=== PATIENT | male | born 1970 | race Asian ===

== ENCOUNTER 2022-03-21 07:16 | Emergency (ER) | payer OTHER, SELFPAY ==
[2022-03-21 07:23] VITALS: BP 140/99; PULSE 100; RESP 18; TEMP 36.6; O2SAT 100; BMI 24.2
--- NOTE | 2022-03-21 07:23 | XR_ITS ---
WS: [id number] Exam: XR chest 1V portable [id number] Date/Time of Exam: 03/21/2022 7:31 AM Reason For Exam: dyspnea/cough No priors. There is cardiac enlargement. The lungs are clear and fully expanded. No pleural effusions. The media stinal silhouette is unremarkable in appearance. Bony structures are intact. XR/XR chest 1V portable [id number] IMPRESSION: 1. Cardiac enlargement. No acute process.
--- NOTE | 2022-03-21 07:23 | ECG_ITS ---
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 Measurements Intervals [place] Rate: 97 P: 36 UT: 140 QRS: -39 QRSD: 97 T: 116 QT: 375 QTc: 477 Interpretive Statements SINUS RHYTHM LEFT ATRIAL ENLARGEMENT [-0.15mV P-WAVE IN V1/V2] LEFT AXIS DEVIATION [QRS AXIS < -30] INCOMPLETE RIGHT BUNDLE BRANCH BLOCK [90+ ms QRS DURATION, TERMINAL R IN V1/V2, 40+ ms S IN I/aVL/V4/V5/V6] ANTEROSEPTAL MYOCARDIAL INFARCTION , OF INDETERMINATE AGE [40+ ms Q WAVE IN V1-V4] MODERATE T-WAVE ABNORMALITY, CONSIDER LATERAL ISCHEMIA [-0.1+ mV T-WAVE IN I/aVL/V5/V6] No previous ECG available for comparison Electronically Signed On 03-22-2022 0:18:57 CDT by Mateus Blum M.D. [id number]
[2022-03-21 07:29] VITALS: PULSE 101; O2SAT 97
--- NOTE | 2022-03-21 07:48 | W.ED.SOB ---
HPI - SOB/Dyspnea General: Chief Complaint: Shortness of Breath/Dyspnea Stated Complaint: SOB Time Seen by Provider: 03/21/22 07:23 Source: patient Mode of arrival: ambulatory History of Present Illness: HPI Narrative: 51-year-old male presents emergency room complaining of shortness of breath. He says he recently got a COVID booster shot and influenza vaccine after that he became a little short of breath. Patient has a known history of HIV had a bronchoscopy last year for a washout because of history of PCP pneumonia. Has been using albuterol and Primatene Mist at home for perceived shortness of breath he states the Primatene Mist is actually helping a little more. He has not had any fevers sweats or chills no productive cough. No other recent illness no other symptoms no abdominal pain chest pain dysuria urgency or frequency or diarrhea. He is managed by infectious disease for his HIV in [place] and is on regular antivirals. He has not had any recent issues or infections. At the time seen the patient he is sitting comfortably resting breathing at room air satting 100% with no tachypnea and no significant cough or wheezing noted. Patient does not smoke. MD elicited complaint: shortness of breath and cough Pertinent past history: HIV and other (History of PCP pneumonia) Onset (ago): day(s) Timing: intermittent Severity: mild Exacerbating factors: nothing Relieving factors: nothing Known history of: HIV and other (History of PCP pneumonia) Associated symptoms: Deny abdominal pain, chest congestion, chest pain, cough, diaphoresis, dizziness, extremity pain, fever(s), hemoptysis, lightheadedness, myalgias, nausea, orthopnea, palpitations, paresthesias, polydipsia, polyuria, rash, sense of impending doom, syncope or vomiting Treatment prior to arrival: bronchodilator Review of Systems Const: Denies: fever(s), chills, fatigue, malaise or diaphoresis ENMT: Denies: throat pain, ear or mastoid pain, nasal discharge or nasal congestion Card: Denies: chest pain, palpitations, lightheadedness, syncope or orthopnea Resp: Reports: dyspnea; Denies: productive cough, non-productive cough, wheezing, hemoptysis or chest congestion GI: Denies: abdominal pain, nausea or vomiting : Denies: flank pain, dysuria, urinary frequency or urinary urgency Musc: Denies: extremity pain Skin/Breast: Denies: rash or pruritus Neuro: Denies: dizziness Endo: Denies: polyuria or polydipsia PFSH ED PFSH: Medical History (Updated 03/21/22 @ 09:03 by Taiwo Ho DO) HIV (human immunodeficiency virus infection) PCP (pneumocystis carinii pneumonia) Social History (Updated 03/21/22 @ 07:52 by Taiwo Ho DO) Smoking and tobacco status: never smoked Alcohol intake: never Physical Exam Const: COMMON NORMALS: no acute distress GENERAL APPEARANCE: cooperative and comfortable ORIENTATION/CONSCIOUSNESS: Yes awake, Yes oriented to person, Yes oriented to place and Yes oriented to time HENMT: COMMON NORMALS: normocephalic, atraumatic and hearing grossly normal bilaterally HEAD & SCALP: normocephalic and atraumatic Resp: COMMON NORMALS: normal respiratory effort, No retractions, No use of accessory muscles and clear to auscultation bilaterally AUSCULTATION: clear to auscultation bilaterally Cardio: COMMON NORMALS: regular rate, regular rhythm and No murmurs present (Cardio) RATE: regular rate RHYTHM: regular rhythm GI: COMMON NORMALS: Soft to palpation and No hepatosplenomegaly present AUSCULTATION: Yes normoactive bowel sounds PALPATION: Yes Soft to palpation, No Tenderness to palpation present (GI), No Guarding due to palpation present (GI) and Yes No hepatosplenomegaly present Extremity: COMMON NORMALS: normal to inspection, capillary refill normal, no clubbing, cyanosis or edema, no calf tenderness and no pedal edema Neuro: SENSORIUM/ORIENTATION: Yes oriented to person, Yes oriented to place and Yes oriented to time Skin: COMMON NORMALS: no rashes or lesions noted GENERAL SKIN EXAM: no rashes or lesions noted Course Vital Signs: Vital signs: Vital Signs Temperature 97.9 F 03/21/22 07:23 Pulse Rate 98 03/21/22 09:28 Respiratory Rate 18 03/21/22 07:23 Blood Pressure 140/110 03/21/22 09:28 Pulse Oximetry 97 03/21/22 09:28 Oxygen Delivery Me thod 03/21/22 07:59 MDM - SOB/Dyspnea Medical Decision Making Labs and imaging reviewed no sign of heart failure pneumothorax pneumonia. Concerning because of his history of Pneumocystis carinii. We will go ahead and start him on a steroid taper and albuterol. He has not been having any fever sweats chills or productive cough. Discussed with him the importance of short-term follow-up with his primary HIV care team. If he has any worsening or change symptoms return. He is visiting from out of town but he says he will be able to get into see his regular doctors on Sunday. Return to the ER if he has further problems. Medical Records I reviewed the patient's medical records. Lab Data I reviewed the patient's lab results. : 03/21/22 08:00 03/21/22 08:00 Labs/Radiology: Radiology Impressions Chest X-Ray 03/21/22 07:23 IMPRESSION: 1. Cardiac enlargement. No acute process. Laboratory Results WBC 9.1 10^3/uL (4.0-10.0) 03/21/22 08:00 RBC 4.47 10^6/uL (4.1-5.3) 03/21/22 08:00 Hgb 15.3 g/dL (11.7-16.6) 03/21/22 08:00 Hct 44.3 % (42.0-52.0) 03/21/22 08:00 MCV 99.1 fl (80-94) H 03/21/22 08:00 MCH 34.2 pg (28.0-34.0) H 03/21/22 08:00 MCHC 34.5 g/dL (30.0-36.0) 03/21/22 08:00 RDW 14.1 % (12.1-15.1) 03/21/22 08:00 Plt Count 243 10^3/cmm (130-400) 03/21/22 08:00 MPV 9.4 fL (7.4-10.4) 03/21/22 08:00 Neut % (Auto) 71.8 % 03/21/22 08:00 Lymph % (Auto) 20.3 % 03/21/22 08:00 Summers % (Auto) 6.1 % 03/21/22 08:00 Eos % (Auto) 0.7 % 03/21/22 08:00 Baso % (Auto) 0.7 % 03/21/22 08:00 Neut # (Auto) 6.51 10^3/uL (1.8-7.7) 03/21/22 08:00 Lymph # (Auto) 1.8 10^3/uL (0.8-4.8) 03/21/22 08:00 Summers # (Auto) 0.6 10^3/uL (0.2-0.9) 03/21/22 08:00 Eos # (Auto) 0.1 10^3/uL (0.0-0.8) 03/21/22 08:00 Baso # (Auto) 0.1 10^3/uL (0.0-0.1) 03/21/22 08:00 Nucleated RBC % (auto) 0 % 03/21/22 08:00 Nucleated RBCs # 0.0 /100WBC 03/21/22 08:00 Sodium 127 mmol/L (136-145) L 03/21/22 08:00 Potassium 4.5 mmol/L (3.5-5.1) 03/21/22 08:00 Chloride 93 mmol/L (98-107) L 03/21/22 08:00 Carbon Dioxide 21 mmol/L (22-29) L 03/21/22 08:00 Anion Gap 17.5 (5-19) 03/21/22 08:00 BUN 24 mg/dL (6-20) H 03/21/22 08:00 Creatinine 1.0 mg/dL (0.7-1.2) 03/21/22 08:00 GFR Calculation 78.2 mL/min (90-130) L 03/21/22 08:00 Glucose 109 mg/dL (65-115) 03/21/22 08:00 Calculated Osmolality 269 mOsm/kg (285-295) L 03/21/22 08:00 Calcium 9.0 mg/dL (8.5-10.5) 03/21/22 08:00 Discharge Plan Discharge Patient Disposition: Home Clinical Impression: Acute bronchospasm Prescriptions: New Medrol (Fernando) 4 mg tablets,dose pack See Rx Instructions .ROUTE .COMPLEX Qty: 21 0RF Rx Instructions: orally per package directions albuterol sulfate 90 mcg/actuation HFA aerosol inhaler 2 inh INHALATION Q4H PRN (Reason: shortness of breath or wheezing) Qty: 18 0RF Discharge Orders: Discharge ED (Routine); Ordered 03/21/22 Ordered By: Taiwo Ho Discharge Diet: Usual diet Discharge Activity: Increase activity as tolerated Patient Instructions: Opioid Safety, Pain Management Activity Restrictions/Additional Instructions: Follow-up with your primary care doctor if you are not improving. Coding Level of Care Code ED Insole Tack Puller Hand for Chg Fwd Exam Detailed
[2022-03-21 07:59] VITALS: BP 159/120; PULSE 100; O2SAT 97
[2022-03-21 08:07] LABS: Basophils # 0.1 10^3/uL (0.0-0.1); Basophils % 0.7 %; Eosinophils # 0.1 10^3/uL (0.0-0.8); Eosinophils % 0.7 %; Hematocrit 44.3 % (42.0-52.0); Hemoglobin 15.3 g/dL (11.7-16.6); Lymphocytes # 1.8 10^3/uL (0.8-4.8); Lymphocytes % 20.3 %; Mean Corpuscular HGB Conc 34.5 g/dL (30.0-36.0); Mean Corpuscular Hemoglobin 34.2 pg (28.0-34.0); Mean Corpuscular Volume 99.1 fl (80-94); Mean Platelet Volume 9.4 fL (7.4-10.4); Monocytes # 0.6 10^3/uL (0.2-0.9); Monocytes % 6.1 %; Neutrophils # 6.51 10^3/uL (1.8-7.7); Neutrophils % 71.8 %; Nucleated Red Blood Cells % 0 %; Platelet Count 243 10^3/cmm (130-400); Red Blood Count 4.47 10^6/uL (4.1-5.3); Red Cell Distribution Width 14.1 % (12.1-15.1); White Blood Count 9.1 10^3/uL (4.0-10.0)
[2022-03-21 08:23] LABS: Anion Gap 17.5 (5-19); Blood Urea Nitrogen 24 mg/dL (6-20); Carbon Dioxide 21 mmol/L (22-29); Chloride 93 mmol/L (98-107); Glomerular Filtration Rate 78.2 mL/min (90-130); Glucose 109 mg/dL (65-115); Osmolality Calculated 269 mOsm/kg (285-295); Potassium 4.5 mmol/L (3.5-5.1); Sodium 127 mmol/L (136-145)
[2022-03-21 09:28] VITALS: BP 140/110; PULSE 98; O2SAT 97
== END 2022-03-21 09:15 | disposition home or self-care (01) ==
PROVIDERS: Emergency Provider Family Medicine
DX: J98.01 Acute bronchospasm (principal); B20 Human immunodeficiency virus [HIV] disease
CPT/HCPCS: 71045; 80048; 85025; 93005; 99285